=== PATIENT | female | born 1985 | race Caucasian/White ===

== ENCOUNTER 2024-09-14 19:18 | Emergency (ER) | payer BC, SELFPAY ==
[2024-09-14 19:22] VITALS: BP 142/84
--- NOTE | 2024-09-14 20:44 | ED.GENMED ---
History of Present Illness
General
Chief Complaint: Skin Surface Trauma
Source: patient, spouse and family
Exam Limitations: none
Time Seen by Provider: 09/14/24 19:58
Nursing documentation reviewed up to this point in time: agreed with
History of Present Illness
History of Present Illness:
38-year-old female past medical history of hypertension and GERD as well as anxiety depression presenting to the emergency department due to a superficial skin avulsion to the right thumb from a mandolin prior to arrival. Denies any additional
concerns. Denies numbness weakness or additional injuries. Last tetanus shot was 4 years ago.
Past History
Past History
ED Past Medical History: HTN, Psychiatric, Other (PCOS; episode of colitis 2020) and Other (Anxiety and Depression)
ED Past Surgical History: Cholecystectomy
Social History
Tobacco: Non-smoker
Alcohol: Occasional
Drug: None
Personal:
Living: with family
Employment: Employed
Family History
Family History: Other (Noncontributory)
Review of Systems
Review of Systems
Allergies reviewed?: Yes
All Other Systems: ROS reviewed and negative except as documented in HPI and ROS
Phy Exam
Physical Exam
Physical Exam:
GENERAL: Alert , in no apparent distress
EYE: pupils equal and reactive
NECK: Supple, no significant adenopathy.
ENT: o/p clr, mmm.
CARDIAC: Regular rate and rhythm .
LUNGS: Clear breath sounds bilaterally, no acute respiratory distress, no wheezes/rales/rhonchi
ABDOMEN: Soft, without focal tenderness, no r/g, no cvat
NEUROLOGICAL: Alert and oriented, no focal neuro deficits
SKIN: Superficial skin avulsion roughly 3 mm in length and 1 mm in width to the right thumb on the radial distal aspect. Just distal to the nailbed warm and dry, skin intact.
MUSCULOSKELETAL: No edema, well perfused.
PSYCH: Normal and appropriate interaction.
Course
Vital Signs
Initial and Last Documented VS:
Initial Vital Signs
Pulse Resp BP Pulse Ox
103 18 142/84 98
09/14/24 19:22 09/14/24 19:22 09/14/24 19:22 09/14/24 19:22
Last Documented Vital Signs
Pulse Resp BP Pulse Ox
103 18 142/84 98
09/14/24 19:22 09/14/24 19:22 09/14/24 19:22 09/14/24 19:22
Procedures
Laceration Closure
Right Distal Radial First Finger:
Status of Wound: clean
Size of Wound in cm: 0.4
Description of Wound Edges: sharp
Preparation: cleaned with saline
Revision/Debridement: routine- no revision and irrigate-direct pressure
Wound exploration: explored to base- no FB and no tendon involvement
Type of Closure: Dermabond-skin glue
MDM/Problems Addressed
MDM/Problems Addressed:
38-year-old female presenting to the emergency department today with concerns of right thumb superficial skin avulsion. This was cleaned thoroughly and closed with Dermabond otherwise stable for discharge return precautions given.
*Critical Care Note
Total Time (30-74mins, 75-104mins- exclusive of procedures): Not Applicable
ED Attending Note
-
Portions of this chart may have been created with voice recognition software.� Occasional wrong word or��sound alike� substitutions may have occurred due to the inherent limitations of voice recognition software.
Discharge Plan
Departure
Patient Disposition: Home (Routine Discharge)
Date of Disposition: 09/14/24
Time of Disposition: 20:46
Patient with high blood pressure during this ER visit?: No
Condition: Good
Covid-19: Not Applicable
Discharge Problem:
Avulsion of skin of finger
Instructions: Laceration Repair With Glue (DC)
Prescriptions:
No Action
metformin 500 MG tablet
500 mg PO BID
venlafaxine [Effexor XR] 75 MG capsule,extended release 24hr
75 mg PO DAILY
amlodipine 2.5 MG tablet
2.5 mg PO DAILY
hydrochlorothiazide 25 MG tablet
25 mg PO DAILY
benzonatate 100 MG capsule
100 mg PO PRN PRN (Reason: cough)
venlafaxine 37.5 MG tablet
37.5 mg PO DAILY
Activity Restrictions/Additional Instructions:
You came to the emergency department today with concerns of a skin avulsion to the right thumb. This was cleaned and closed with Dermabond. Return to the emergency department for any worsening, new or concerning symptoms.
Interventions
Interventions:
*Risk Screen - Suicide Last Done: 09/14/24 19:22
*General Assessment Last Done: 09/14/24 19:22
*Neglect/Abuse Screening Last Done: 09/14/24 19:22
ED- Fall Risk Assessment Last Done: 09/14/24 19:22
*ED COVID-19 Vaccine History Last Done: 09/14/24 19:22
ED-Skin Assessment Last Done: 09/14/24 20:00
Discharge Date and Time
Print Language: BHUTANESE
== END 2024-09-14 21:05 | disposition home or self-care (01) ==
LOC: EMR 19:18
PROVIDERS: EMERGENCY PHYSICIAN Emergency Medicine
DX: S61.001A Unspecified open wound of right thumb without damage to nail, initial encounter (principal); W27.4XXA Contact with kitchen utensil, initial encounter; I10 Essential (primary) hypertension; E28.2 Polycystic ovarian syndrome; F41.8 Other specified anxiety disorders; K21.9 Gastro-esophageal reflux disease without esophagitis; Z90.49 Acquired absence of other specified parts of digestive tract
CPT/HCPCS: 99282; 12001